=== PATIENT | female | born 1980 | race Caucasian/White ===

== ENCOUNTER 2017-11-01 10:18 | Observation (INO) ==
[2017-11-01 10:56] LABS: Basophils % 0.1 %; Eosinophils # 0.1 K/mcL (0.0-0.6); Eosinophils % 1.1 %; Hematocrit 35.6 % (35.3-44.9); Hemoglobin 12.1 g/dL (11.5-15.4); Immature Granulocytes % 0.9 % (0-4); Lymphocytes # 1.5 K/mcL (0.6-4.6); Lymphocytes % 17.2 %; Mean Corpuscular Hemoglobin 30.5 pg (28.0-33.3); Mean Corpuscular Volume 89.7 fL (83.0-100.0); Mean Platelet Volume 11.4 fL (9.4-12.4); Monocytes # 0.8 K/mcL (0.0-1.3); Monocytes % 9.3 %; Neutrophils # 6.3 K/mcL (1.6-8.9); Platelet Count 160 K/mcL (140-400); Red Blood Count 3.97 M/mcL (3.82-4.97); Red Cell Distribution Width 15.4 % (11.5-14.5); Segmented Neutrophils % 71.4 %
[2017-11-01 11:04] LABS: Amphetamine Screen,Urine Negative ng/mL (Cutoff=1000); Barbiturate Screen,Urine Negative ng/mL (Cutoff=200); Benzodiazepines Screen,Urine Negative ng/mL (Cutoff=200); Cannabinoid Screen,Urine Negative ng/mL (Cutoff = 50); Cocaine Screen,Urine Negative ng/mL (Cutoff= 300); Opiate Screen,Urine Negative ng/mL (Cutoff=300); Phencyclidine Screen,Urine Negative ng/mL (Cutoff=25); Protein/Creatinine Ratio,Urine 0.24 mg/mg (0.00-0.20)
[2017-11-01 11:20] LABS: Alanine Aminotransferase 10 Units/L (7-52); Aspartate Amino Transferase 13 Units/L (13-39); BUN/Creatinine Ratio 11 (6-26); Blood Urea Nitrogen 5 mg/dL (6-20); Lactate Dehydrogenase 124 Units/L (140-271); Uric Acid 5.2 mg/dL (2.3-7.6); eGFR For Non-African Americans > 60 (> 60)
--- NOTE | 2017-11-01 11:20 | OB/GYN Progress Note ---
Date of Encounter: 11/01/17 Time of Encounter: 11:18 - Assessment and Plan (1) 35 weeks gestation of Current Visit: Yes Status: Acute PIH Labs normal BP normal Will treat headache with Imitrex Stable to discharge home Pre-Term Labor and PIH Precautions given (2) Headache Current Visit: Yes Status: Acute Qualifiers: Headache type: tension-type Headache chronicity pattern: acute headache Intractability: intractable Qualified Code(s): G44.201 - Tension-type headache , unspecified, intractable Subjective - Subjective Principal diagnosis: Headache Interval history: This is a 37 y/o F at 35 weeks gestation who presents with headaches, blurry vision, lightheadedness for the past 3 days. States headache comes and goes and spreads across the top of her head similar to tension headaches she has had in the past. Currently managed with Tylenol with only minimal relief. Has hx of pre-eclampsia with previous in 2000. Endorses +FM. Denies vaginal bleeding, loss of fluid. Denies ear pain, nasal congestion, sore throat , nausea, vomiting, diarrhea, dysuria. Antepartum ROS: new complaints, movement normal, no loss of fluid, no vaginal bleeding, no contractions Objective - Vital Signs Vital Signs: Intake and Output 10/31/17 11/01/17 11/01/17 23:59 07:59 15:59 Other: Weight 114.305 kg Patient Weight 11/01/17 23:59 Weight 114.305 kg - Exam FHR: auscultation normal, category 1 FHR comments: Baseline 135; Reactive NST Auscultation: bilateral: normal Abdomen: Present: normal appearance, soft, gravid - Labs Labs: Abnormal lab results RDW 15.4 % (11.5-14.5) H 11/01/17 10:39 Protein/Creatinin Ratio 0.24 mg/mg (0.00-0.20) H 11/01/17 10:39
[2017-11-01] MEDS ORDERED: SUMAtriptan succinate 50 MG TABLET PO ONE (11:40)
== END 2017-11-01 12:05 | disposition home or self-care (01) ==
LOC: 1NENULAB
PROVIDERS: ADMIT Obstetrics & Gynecology; ATTEND Obstetrics & Gynecology

== ENCOUNTER 2017-11-04 10:11 | Observation (INO) ==
[2017-11-04 11:16] LABS: Basophils % 0.2 %; Eosinophils # 0.1 K/mcL (0.0-0.6); Hematocrit 33.5 % (35.3-44.9); Hemoglobin 10.9 g/dL (11.5-15.4); Immature Granulocytes % 1.2 % (0-4); Lymphocytes # 1.6 K/mcL (0.6-4.6); Lymphocytes % 18.5 %; Mean Corpuscular HGB Conc 32.5 g/dL (31.6-35.5); Mean Corpuscular Hemoglobin 29.4 pg (28.0-33.3); Mean Corpuscular Volume 90.3 fL (83.0-100.0); Mean Platelet Volume 11.6 fL (9.4-12.4); Monocytes # 0.7 K/mcL (0.0-1.3); Monocytes % 8.3 %; Neutrophils # 6.2 K/mcL (1.6-8.9); Platelet Count 153 K/mcL (140-400); Red Blood Count 3.71 M/mcL (3.82-4.97); Red Cell Distribution Width 15.7 % (11.5-14.5); Segmented Neutrophils % 70.8 %
[2017-11-04 11:40] LABS: Alanine Aminotransferase 10 Units/L (7-52); Aspartate Amino Transferase 13 Units/L (13-39); BUN/Creatinine Ratio 11 (6-26); Blood Urea Nitrogen 5 mg/dL (6-20); Lactate Dehydrogenase 119 Units/L (140-271); Protein/Creatinine Ratio,Urine 0.24 mg/mg (0.00-0.20); Uric Acid 5.7 mg/dL (2.3-7.6); eGFR For Non-African Americans > 60 (> 60)
[2017-11-04 11:41] LABS: Amphetamine Screen,Urine Negative ng/mL (Cutoff=1000); Barbiturate Screen,Urine Negative ng/mL (Cutoff=200); Benzodiazepines Screen,Urine Negative ng/mL (Cutoff=200); Cannabinoid Screen,Urine Negative ng/mL (Cutoff = 50); Cocaine Screen,Urine Negative ng/mL (Cutoff= 300); Opiate Screen,Urine Negative ng/mL (Cutoff=300); Phencyclidine Screen,Urine Negative ng/mL (Cutoff=25)
--- NOTE | 2017-11-04 12:00 | OB/GYN Progress Note ---
Date of Encounter: 11/04/17 Time of Encounter: 11:58 - Assessment and Plan (1) 35 weeks gestation of Current Visit: Yes Status: Acute (2) Headache Current Visit: Yes Status: Acute Labs and blood pressures normal. Patient was discharged after evaluation by RN. Qualifiers: Headache type: unspecified Headache chronicity pattern: chronic headache Intractability: intractable Qualified Code(s): R51 - Headache Objective - Vital Signs Vital Signs: Intake and Output 11/03/17 11/04/17 11/04/17 23:59 07:59 15:59 Other: Weight 114.7 kg Patient Weight 11/04/17 23:59 Weight 114.7 kg - Labs Labs: Abnormal lab results RBC 3.71 M/mcL (3.82-4.97) L 11/04/17 10:04 Hgb 10.9 g/dL (11.5-15.4) L 11/04/17 10:04 Hct 33.5 % (35.3-44.9) L 11/04/17 10:04 RDW 15.7 % (11.5-14.5) H 11/04/17 10:04 BUN 5 mg/dL (6-20) L 11/04/17 10:04 Creatinine 0.46 mg/dL (0.60-1.20) L 11/04/17 10:04 Lactate Dehydrogenase 119 Units/L (140-271) L 11/04/17 10:04 Protein/Creatinin Ratio 0.24 mg/mg (0.00-0.20) H 11/04/17 10:04 Urine Total Protein 17 mg/dL (1-14) H 11/04/17 10:04
== END 2017-11-04 12:13 | disposition home or self-care (01) ==
LOC: 1NENULAB
PROVIDERS: ADMIT Advanced Practice Midwife; ATTEND Advanced Practice Midwife

== ENCOUNTER → 2017-11-22 22:40 | Observation (INO) ==
[2017-11-22 21:09] LABS: Bilirubin,Urine Negative (Negative); Blood,Urine Negative (Negative); Clarity,Urine Cloudy (Clear); Color,Urine Yellow (Yellow); Glucose,Urine (UA) Normal (Normal); Ketones,Urine Negative (Negative); Leukocyte Esterase,Urine Negative (Negative); Nitrite,Urine Negative (Negative); Protein,Urine Negative (Neg-Trace); Specific Gravity,Urine 1.007 (1.010-1.025); Urobilinogen,Urine Normal (Normal)
[2017-11-22 21:11] LABS: Bacteria,Urine None Seen per hpf (None-Few); Hyaline Casts,Urine None Seen per lpf (None-Few); Squamous Epithelial Cell,Urine Many per lpf (None-Few); WBC,Urine 0-3 per hpf (0-3)
[2017-11-22 21:16] LABS: Amphetamine Screen,Urine Negative ng/mL (Cutoff=1000); Barbiturate Screen,Urine Negative ng/mL (Cutoff=200); Benzodiazepines Screen,Urine Negative ng/mL (Cutoff=200); Cannabinoid Screen,Urine Negative ng/mL (Cutoff = 50); Cocaine Screen,Urine Negative ng/mL (Cutoff= 300); Opiate Screen,Urine Negative ng/mL (Cutoff=300); Phencyclidine Screen,Urine Negative ng/mL (Cutoff=25)
--- NOTE | 2017-11-22 22:33 | Discharge Summary ---
Date of Encounter: 11/22/17 Time of Encounter: 22:32 - Discharge Diagnosis (1) 38 weeks gestation of Priority: Primary Status: Acute Comments: Follow-up with Dr. Bautista on Thursday as scheduled Labor parameters explained Discharge home (2) Abdominal cramping affecting Priority: Secondary Status: Acute Comments: Reports cramping has now stopped again. Encouraged to increase hydration. Biopsies heating pad. May also use heating pad. - Discharge Medications Home Medications: Vitamins PO DAILY 06/22/17 [History] Aspirin 81 mg PO DAILY 09/25/17 [History] Allergies/Adverse Reactions: 3 Allergy/AdvReac Type Severity Reaction Status Date / Time No Known Allergies Allergy Verified 09/25/17 21:06 Data Procedures and tests throughout hospitalization: Laboratory Tests 11/22/17 11/22/17 20:47 20:47 Urine Color Yellow Urine Clarity Cloudy A Urine pH 7.0 Ur Specific [place] 1.007 L Urine Protein Negative Urine Glucose (UA) Normal Urine Ketones Negative Urine Blood Negative Urine Nitrite Negative Urine Bilirubin Negative Urine Urobilinogen Normal Ur Leukocyte Esterase Negative Urine Microscopic RBC 5-15 H Urine Microscopic WBC 0-3 Ur Squamous Epith Cells Many H Urine Bacteria None Seen Hyaline Casts None Seen Ur Culture Indicated? NO Urine Opiates Screen Negative Ur Barbiturates Screen Negative Ur Phencyclidine Scrn Negative Ur Amphetamines Screen Negative U Benzodiazepines Scrn Negative Urine Cocaine Screen Negative U Marijuana (THC) Screen Negative Ur Drug Screen Interp See Below Labs on day of discharge: Labs from last 24 hours 11/22/17 11/22/17 20:47 20:47 Urine Color Yellow Urine Clarity Cloudy A Urine pH 7.0 Ur Specific [place] 1.007 L Urine Protein Negative Urine Glucose (UA) Normal Urine Ketones Negative Urine Blood Negative Urine Nitrite Negative Urine Bilirubin Negative Urine Urobilinogen Normal Ur Leukocyte Esterase Negative Urine Microscopic RBC 5-15 H Urine Microscopic WBC 0-3 Ur Squamous Epith Cells Many H Urine Bacteria None Seen Hyaline Casts None Seen Ur Culture Indicated? NO Urine Opiates Screen Negative Ur Barbiturates Screen Negative Ur Phencyclidine Scrn Negative Ur Amphetamines Screen Negative U Benzodiazepines Scrn Negative Urine Cocaine Screen Negative U Marijuana (THC) Screen Negative Ur Drug Screen Interp See Below Date of admission: 11/22/17 19:58 Discharging clinician: Justa Oakes Anticipated date of discharge: 11/22/17 - Patient Status Disposition: Home, Self-Care Condition: Good Functional capacity at discharge: independent ambulation Overall status at discharge: patient is progressing back to baseline - Discharge Instructions Follow Up With: Lucia Bautista MD [Partnered Physician] - - Diet and Activity Activity: increase activity as tolerated Diet: regular diet 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 Ambriz is a 37-year-old 012 at 38 weeks 0 days gestation who presents with complaints of contractions off and on all day on Thursday. She reports they stopped on Thursday. She reports the resume today in the morning. She states they have been every 15 minutes throughout the day and now feels that they are closer together but cannot quantify time. She endorses good movement and denies leakage of fluid and vaginal bleeding. She was here for 2 hours with no cervical change. SVE on arrival is 1-/ballotable. Labor parameters were discussed with patient and partner and they verbalized understanding of when to return in anticipation of laboring. She states she has an appointment with Dr. Bautista on Thursday and plans to keep it and follow-up then. Time Attestation: Total time spent providing and/or coordinating discharge services: Time Spent: Less than 30 minutes Exam - Constitutional General appearance IM: A&O X 3, morbidly obese, pleasant, no acute distress, answers questions appropriately - Respiratory Respiratory exam: Present: CTAB - Cardiovascular Cardiovascular exam IM: Present: RRR, +S1, +S2 - GI/Abdominal GI/Abdominal exam IM: normal bowel sounds, no peritoneal signs - Rectal Rectal exam: deferred - Uterine Tone: Firm - Extremities Exam Extremities exam IM: Present: normal capillary refill, normal inspection, radial pulses palpable and symmetrical - Neurological Exam Neurological exam: alert, CN II-XII intact, normal gait, oriented X3, reflexes normal, no focal deficits, strengths equal and symetr throughout - VTE Reasons for not Prescribing Prophylaxis: Treatment not Indicated - Low risk for VTE
== END | disposition home or self-care (01) ==
LOC: 1NENULAB
PROVIDERS: ADMIT Obstetrics & Gynecology; ATTEND Obstetrics & Gynecology

== ENCOUNTER 2017-11-30 05:42 | Inpatient (IN) ==
[2017-11-30] MEDS ORDERED: Metoclopramide 10 MG/2 ML VIAL IVP PRN (05:43)
[2017-11-30] MEDS ORDERED: Famotidine 20 MG/2 ML VIAL IVP PRN (05:43)
[2017-11-30] MEDS ORDERED: Naloxone 0.4 MG/ML INJ IVP PRN (05:43)
[2017-11-30] MEDS ORDERED: Ringers Solution, Lactated 1,000 ML IVC SCH (05:45)
[2017-11-30 06:40] LABS: Basophils % 0.2 %; Eosinophils # 0.2 K/mcL (0.0-0.6); Eosinophils % 1.7 %; Hemoglobin 11.1 g/dL (11.5-15.4); Immature Granulocytes % 0.8 % (0-4); Lymphocytes # 1.9 K/mcL (0.6-4.6); Lymphocytes % 19.5 %; Mean Corpuscular HGB Conc 32.6 g/dL (31.6-35.5); Mean Corpuscular Hemoglobin 29.7 pg (28.0-33.3); Mean Corpuscular Volume 90.9 fL (83.0-100.0); Mean Platelet Volume 11.7 fL (9.4-12.4); Monocytes # 0.9 K/mcL (0.0-1.3); Neutrophils # 6.6 K/mcL (1.6-8.9); Platelet Count 143 K/mcL (140-400); Red Blood Count 3.74 M/mcL (3.82-4.97); Red Cell Distribution Width 16.1 % (11.5-14.5); Segmented Neutrophils % 68.8 %
[2017-11-30 07:13] LABS: Amphetamine Screen,Urine Negative ng/mL (Cutoff=1000); Barbiturate Screen,Urine Negative ng/mL (Cutoff=200); Benzodiazepines Screen,Urine Negative ng/mL (Cutoff=200); Cannabinoid Screen,Urine Negative ng/mL (Cutoff = 50); Cocaine Screen,Urine Negative ng/mL (Cutoff= 300); Opiate Screen,Urine Negative ng/mL (Cutoff=300); Phencyclidine Screen,Urine Negative ng/mL (Cutoff=25)
[2017-11-30] MEDS ORDERED: MetroNIDAZOLE 500 MG/100 ML 500 MG/100 ML BAG IVPB ONE (07:34)
[2017-11-30] MEDS ORDERED: WATER IVPB ONE (07:35)
[2017-11-30] MEDS ORDERED: D5 IVPB ONE (07:35)
[2017-11-30] MEDS ORDERED: CEFOXITIN IVPB ONE (07:35)
--- NOTE | 2017-11-30 07:38 | Anesthesia Evaluation PreOp ---
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 Any Significant HX Other Medical History: Other ([place]) Anesthesia History: No Prior Anesthetic Complications : Yes (39 weeks, large for gestational age) Alcohol Use: none Drug use: none Medications and Allergies Vitamins 1 tab PO DAILY 06/22/17 [History] Aspirin 81 mg PO DAILY 09/25/17 [History] 3 Allergy/AdvReac Type Severity Reaction Status Date / Time No Known Allergies Allergy Verified 09/25/17 21:06 - Meds/Allergy Pre-op Review Medications Reviewed: Yes Allergies Reviewed: Yes Beta Blockers on Current Med List: No Anesthesia Results - Labs 11/30/17 06:18 Anesthesia Exam O2 Sat Height 1.68 m Weight 116.6 kg Vital Signs Temp Pulse Resp BP 98.4 F 80 15 124/76 11/30/17 05:54 11/30/17 05:54 11/30/17 05:54 11/30/17 05:54 Height: 5'6 Weight: 257 lbs NPO (# of Hours): MN Pain Scale: 0 - HEENT Pupil (Motor): Pupils equal, EOMI Mallampati: II Teeth: Normal Oral Opening: Greater than 3 - NAPPING MACHINE OPERATOR LOC: Oriented NAPPING MACHINE OPERATOR Motor: Normal RUE, Normal LUE, Normal RLE, Normal LLE, Normal Face NAPPING MACHINE OPERATOR Sensory: Normal: RUE, LUE, RLE, LLE, Face - Cardiac Rhythm: Regular Murmur: None JVD: No Carotid Bruit: No - Pulmonary Breath Sounds: bilateral Clear Respiratory Effort: Symmetrical Anesthesia Assess/Plan ASA Score: 3 ([place] ) Modified Bunn Scale for Level of Consciousness: Cooperative, oriented, and tranquil Anesthetic Plan: Regional Monitoring Plan: Standard Monitors Recovery Plan: PACU (Discussed SAB possible GA, agrees to proceed)
--- NOTE | 2017-11-30 07:52 | OB/GYN History & Physical ---
Date of Encounter: 11/30/17 Time of Encounter: 07:49 History of Present Illness Chief complaint: Scheduled primary section HPI: Ms. Ambriz is a 37 year old female 012 here for a scheduled primary section at 39 weeks and 1 day with an EDC of 12/06/17 by an 11 week ultrasound. She is requesting an ultrasound due to an estimated weight on 11/18 of 4221 g. This was with maternal- medicine. Risks and benefits of shoulder dystocia were reviewed with Dr. Jarrell. Informed consent has been obtained. The patient denies any cramping, bleeding or loss of fluid since her last visit. She still has lower extremity edema. She wanted a tubal ligation but did not sign tubal papers until 11/24/17 which limits her ability to get this done today due to insurance issues. Her labs include a blood type of A+, rubella immune, varicella immune and GBS negative. She has a history of preeclampsia and has been on a baby aspirin. Her has also been complicated by obesity. She denies any blurred vision, headaches or epigastric pain Past Med Surg Social Fam HX - Past Medical History Attestation: Yes The following information was validated with the patient. Source: patient, old records reviewed Medical history: non-contributory Psychiatric history: no psych history - Past Surgical History Surgical History: other (Hysteroscopy, laparoscopy, D&C and tonsillectomy) Additional surgical history: right leg surgery - Social History Smoking Status: Former smoker Smokeless Tobacco Status: No Alcohol use: none Drug use: none Current living situation: Home - Independent Activity Level: Independent ambulation - Family History Father Living Status: Still Living Hx Family Cardiac Disorders: No Hx Family Respiratory Disorders: Yes (COPD) Hx Family Cancer: No Hx Family GI Disorders: No Hx Family Endocrine Disorder: No Hx Family Neuromuscular Disorders: No Hx Family Neurologic Disorders: No Hx Family HEENT Disorders: No Hx Family Autoimmune Disorders: No Mother Living Status: Still Living Hx Family Cardiac Disorders: No Hx Family Respiratory Disorders: No Hx Family Cancer: No Hx Family GI Disorders: No Hx Family Genitourinary Disorders: No Hx Family Endocrine Disorder: No Hx Family Musculoskeletal Disorders: No Hx Family Neuromuscular Disorders: No Hx Family Neurologic Disorders: No Hx Family HEENT Disorders: No Hx Family Autoimmune Disorders: No Hx Family Reproductive Disorders: No Hx Family Psychosocial Disorders: No Hx Family Medical Disorders: No Obstetrical History - Pregnancies : 4 Term: 2 : 0 Ab's: 1 Livin - History/Complications History/Complications: Preeclampsia with first in 1997 Medications and Allergies Vitamins 1 tab PO DAILY 06/22/17 [History] Aspirin 81 mg PO DAILY 09/25/17 [History] 3 Allergy/AdvReac Type Severity Reaction Status Date / Time No Known Allergies Allergy Verified 09/25/17 21:06 Review of System OB All systems PM: reviewed and no additional remarkable complaints except as stated - Constitutional Constitutional ROS IM: fatigue, weight gain - Integumentary Integumentary: swelling (Bilateral lower extremities) Exam - Vital Signs Vital signs: Initial Vital Signs Temp Pulse Resp BP 98.4 F 80 15 124/76 11/30/17 05:54 11/30/17 05:54 11/30/17 05:54 11/30/17 05:54 - Constitutional Constitutional: well developed, well nourished, no acute distress, morbidly obese - HEENT HEENT: Normocephaly, Mucus Membranes Moist - Neck Neck exam: normal inspection, supple - Lungs Respiratory exam: CTAB - Cardiovascular Cardiovascular exam: RRR - Abdomen Abdomen: Present: bowel sounds normal, gravid, non tender - Extremities Extremities exam: pedal edema, warm Deep Tendon Reflex Grade: 3+ Normal But Brisk Results Result Diagrams: 11/30/17 06:18 Abnormal lab results RBC 3.74 M/mcL (3.82-4.97) L 11/30/17 06:18 Hgb 11.1 g/dL (11.5-15.4) L 11/30/17 06:18 Hct 34.0 % (35.3-44.9) L 11/30/17 06:18 RDW 16.1 % (11.5-14.5) H 11/30/17 06:18 All other labs normal.
[2017-11-30] MEDS ORDERED: Acetaminophen IV 1,000 MG/100 ML INFUS..BTL IVPB ONE (07:57)
[2017-11-30] MEDS ORDERED: Ondansetron 4 MG/2 ML VIAL IVP ONE (07:57)
[2017-11-30] MEDS ORDERED: *HR* OxyCODONE Immed Rel 5 MG TABLET PO PRN (07:57)
[2017-11-30] MEDS ORDERED: *HR* FentaNYL (PF) 100 MCG/2 ML VIAL IVP PRN (07:57)
--- NOTE | 2017-11-30 08:34 | Anesthesia Procedures ---
Date of Encounter: 11/30/17 Time of Encounter: 08:32 Procedures: Anesthesia - Epidural/Spinal Patient ID/Chart reviewed: Yes Patient examined: Yes OB Eval: Gestational age: 39 OB Eval: : 4 OB Eval: Hx Para: 2 OB Eval: Contractions: Non-stressed pattern Consent Obtained: Yes Supplemental Oxygen: Nasal Cannula Supplemental Oxygen Rate (L/min): 3 Site Prep: Aseptic Technique, 0.5% Chlorhexidine/Alcohol Patient position: upright Local Anesthetic: Lidocaine 1% (3) Amount of Local Anesthetic used: 3 Interspace Used: L2-L3 Loss of Resistance (AMNA): No Blood: No CSF: Yes Paresthesia: No Spinal Needle Gauge: 25 Spinal Dose: marcaine 12 mg duramorph .25 mg fentanyl 10 mcg Vitals + FHT's: 126/78 70 16 fht 133
--- NOTE | 2017-11-30 09:38 | OB/GYN Procedure Note ---
Section - Date of procedure: 11/30/17 Preop diagnosis: other (Desires primary section for suspected macrosomia) Post-op diagnosis: same Procedure: section, primary low transverse Surgeon: Lucia Dorantes Blood Loss: 700 Was there an surgical supply assistant present: Yes Protective Services Social Worker: Dev Villafana Anesthesiologist: Rolando Butler Case Preparer And Liner: Genaro Valdivia Anesthesia Type: Spinal section complications: none Disposition: L&D Recovery Room Specimens: Placenta, Cord segment - (s) Infant A Infant Delivery Date: 11/30/17 Infant Delivery Time: 08:34 Presentation: vertex Position: RADHA Route of delivery: other () Gender: Male Viability: Viable Pounds: 9 Ounces: 12 Gram Weight: 4.43 kg at 1 minute: 8 at 5 minutes: 9 Shoulder Dystocia: not encountered Placenta: spontaneous Cord: 3 umbilical vessels - Narrative Narrative: The patient was brought to the operating room, sign in completed, given spinal anesthesia then prepped and draped in the usual sterile fashion. A timeout was completed. A Pfannenstiel skin incision was then made and sharply dissected down to the fascia. The fascia was then incised in the midline and extended bluntly and sharply bilaterally. 2 straight Maryjo clamps are placed on the inferior fascial edge and the fascia was bluntly and sharply dissected from rectus muscles, this was repeated superiorly. The rectus muscles were bluntly and sharply bissected. Peritoneum was bluntly entered and extended bluntly superiorly and inferiorly. A bladder blade was placed to protect the bladder. The Vesicouterine peritoneum was incised with Metzenbaum scissors and extended laterally then the bladder flap was reflected inferiorly and the bladder blade was replaced to protect the bladder. A low transverse incision was then made in the lower uterine segment down to the amnion. There was brisk bleeding which was then later identified as the inferior edge of the placenta. The incision was then bluntly extended bilaterally. The amnion was then bluntly entered with Allis clamp, clear fluid was seen, and the was delivered in vertex presentation. The was vigorous and suctioned on the operating field. After delayed cord clamping, the infant was handed to the nursery care team. A cord segment was obtained. IV Pitocin was started. The placenta was delivered spontaneous and intact. The uterine cavity was digitally inspected and noted to be clear and then was wiped clean with a moist lap sponge. Tubes and ovaries were inspected and found to be grossly normal. Ring clamps were placed on the edge of the uterine incision and the uterine incision was closed using 0 Vicryl suture in a running locking fashion. A second imbricating layer completed the uterine closure. Good hemostasis was achieved. The pelvic cavity was copiously irrigated with sterile water and good hemostasis was confirmed. Peritoneal edges and rectus muscles were inspected and good hemostasis was achieved. The fascia was then closed using an 0 PDS loop in a running nonlocking fashion. Subcutaneous tissue was irrigated with sterile water good hemostasis was achieved. This layer was closed with an O- Stratafix. The skin was then closed with 4-0 Monocryl in a subcuticular fashion. Prineo dressing placed. The Iglesias was noted to be draining clear yellow urine at the end of the procedure. All sponge and instrument counts were correct at the end of the procedure.
[2017-11-30] MEDS ORDERED: Oxytocin 20 units/ LR 1000 mL 20 UNIT/1,000 ML BAG IVC ONE ×2 (09:46→11:25)
--- NOTE | 2017-11-30 12:00 | Anesthesia Evaluation Post Op ---
Date of Encounter: 11/30/17 Time of Encounter: 11:58 - Vital Signs Vital Signs: Vital Signs/O2 Sat, Most Current Temp Pulse Resp BP Pulse Ox 98 F 68 15 106/69 95 11/30/17 11:55 11/30/17 11:55 11/30/17 11:55 11/30/17 11:55 11/30/17 11:55 - Lungs Lungs: Clear Ascult./Percussion - Airway Airway: Non-obstructed - Cardiovascular Regular Rate - Mental Status Mental Status: Alert & Oriented, Answers Appropriately - Pain Pain Scale: 3 Pain Scale used: Numeric (1 - 10) - Nausea Vomiting Nausea Vomiting: Not Present - Hydration Hydration: Ice chips, Iglesias catheter - Discharge PostOp Status: Transfer Patient to floor (VSS, fully awake, minimal pain, no anesthetic complications)
[2017-11-30] MEDS ORDERED: Simethicone 80 MG TAB.CHEW PO PRN (12:15)
[2017-11-30] MEDS ORDERED: Oxytocin 20 units/ LR 1000 mL 20 UNIT/1,000 ML BAG IVC SCH (12:15)
[2017-11-30] MEDS ORDERED: Ondansetron 4 MG/2 ML VIAL IVP PRN (12:15)
[2017-11-30] MEDS ORDERED: Sennosides 8.6 MG TABLET PO PRN (12:15)
[2017-11-30] MEDS: *HR* OxyCODONE/APAP 5/325 TABLET PO PRN (14:14)
[2017-11-30] MEDS: Ibuprofen 600 MG TABLET PO SCH (20:03)
[2017-12-01] MEDS: Ibuprofen 600 MG TABLET PO SCH ×4 (02:42→20:31)
[2017-12-01 04:14] LABS: Basophils % 0.2 %; Eosinophils # 0.2 K/mcL (0.0-0.6); Eosinophils % 1.6 %; Hematocrit 30.1 % (35.3-44.9); Hemoglobin 9.9 g/dL (11.5-15.4); Immature Granulocytes % 0.8 % (0-4); Lymphocytes # 1.8 K/mcL (0.6-4.6); Lymphocytes % 16.5 %; Mean Corpuscular HGB Conc 32.9 g/dL (31.6-35.5); Mean Corpuscular Hemoglobin 30.3 pg (28.0-33.3); Mean Platelet Volume 11.4 fL (9.4-12.4); Monocytes % 9.4 %; Neutrophils # 7.6 K/mcL (1.6-8.9); Platelet Count 129 K/mcL (140-400); Red Blood Count 3.27 M/mcL (3.82-4.97); Red Cell Distribution Width 16.4 % (11.5-14.5); Segmented Neutrophils % 71.5 %
[2017-12-01] MEDS: Prenatal Vit/FA 1 EACH TABLET PO SCH (07:31)
[2017-12-01] MEDS: *HR* OxyCODONE/APAP 5/325 TABLET PO PRN ×3 (07:32→18:46)
--- NOTE | 2017-12-01 09:27 | OB/GYN Progress Note ---
Date of Encounter: 12/01/17 Time of Encounter: 09:25 - Assessment and Plan (1) S/P section Current Visit: Yes Status: Acute Pt meeting post-op day 1 milestones. Anticipate discharge home POD2-3. Subjective - Subjective Interval history: Pt reports some cramping pain this am. No other complaints. Patient reports: appetite normal, voiding normally, pain well controlled, ambulating normally [place]: doing well Objective - Vital Signs Latest vital signs: Vital Signs Temp Pulse Resp BP Pulse Ox 12/01/17 08:03 97.8 F 77 14 121/74 96 12/01/17 04:10 98.4 F 84 16 112/72 96 12/01/17 00:35 98.7 F 85 16 117/70 96 11/30/17 20:10 98.6 F 83 14 110/72 96 11/30/17 15:05 98.2 F 72 16 102/64 96 11/30/17 14:00 97.9 F 70 16 111/69 95 11/30/17 13:00 97.6 F 86 14 112/65 96 11/30/17 11:55 98 F 68 15 106/69 95 Intake and Output 11/30/17 12/01/17 12/01/17 23:59 07:59 15:59 Intake Total 1880 / 1880 400 / 400 1020 / 1020 Output Total 2200 / 2200 3400 / 3400 400 / 400 Balance -320 / -320 -3000 / -3000 620 / 620 Intake: Oral 1880 / 1880 400 / 400 1020 / 1020 Output: Urine 400 / 400 400 / 400 Catheter 2200 / 2200 3000 / 3000 Other: Meal Breakfast Percent of Meal Consumed 100% Weight 112.491 kg Patient Weight 12/01/17 23:59 Weight 112.491 kg - Exam Lungs: bilateral: normal Chest: Normal S1, Normal S2 Extremities: Present: edema (1+ bilaterally) Abdomen: Present: soft, gravid Incision: Present: intact Uterus: Present: firm - Labs Labs: Laboratory Results - last 24 hr 12/01/17 04:01 WBC 10.6 RBC 3.27 L Hgb 9.9 L Hct 30.1 L MCV 92.0 MCH 30.3 MCHC 32.9 RDW 16.4 H Plt Count 129 L MPV 11.4 Immature Gran % 0.8 Seg Neutrophils % 71.5 Lymphocytes % 16.5 Monocytes % 9.4 Eosinophils % 1.6 Basophils % 0.2 Neutrophils # 7.6 Lymphocytes # 1.8 Monocytes # 1.0 Eosinophils # 0.2 Basophils # 0.0
[2017-12-02] MEDS: *HR* OxyCODONE/APAP 5/325 TABLET PO PRN ×5 (00:20→21:08)
[2017-12-02] MEDS ORDERED: Lanolin 28 GM TUBE TP PRN (00:23)
[2017-12-02] MEDS: Ibuprofen 600 MG TABLET PO SCH ×3 (06:05→18:14)
[2017-12-02] MEDS: Prenatal Vit/FA 1 EACH TABLET PO SCH (08:33)
--- NOTE | 2017-12-02 13:19 | OB/GYN Progress Note ---
Date of Encounter: 12/02/17 Time of Encounter: 13:17 - Assessment and Plan (1) S/P section Current Visit: Yes Status: Acute Stable postop day #2 Continue current management plan Anticipate discharge tomorrow with infant Subjective - Subjective Interval history: Patient states feels well, breast-feeding, pain was managed on by mouth pain medication, tolerating regular diet Patient reports: appetite normal, voiding normally, pain well controlled, ambulating normally [place]: doing well, nursing well Objective - Vital Signs Latest vital signs: Vital Signs Temp Pulse Resp BP Pulse Ox 12/02/17 07:25 98.1 F 69 14 118/71 97 12/01/17 20:42 98.5 F 86 18 133/77 96 Intake and Output 12/01/17 12/02/17 12/02/17 23:59 07:59 15:59 Intake Total 1000 / 1000 1900 / 1900 360 / 360 Output Total 900 / 900 2500 / 2500 Balance 100 / 100 1900 / 1900 -2140 / -2140 Intake: Oral 1000 / 1000 1900 / 1900 360 / 360 Output: Urine 900 / 900 2500 / 2500 Other: Meal Breakfast Breakfast Percent of Meal Consumed 100% 100% - Exam Lungs: bilateral: normal Chest: Normal S1, Normal S2 Extremities: Present: normal Abdomen: Present: soft Incision: Present: intact (dermabond dressing) Uterus: Present: firm (U)
[2017-12-03] MEDS: Ibuprofen 600 MG TABLET PO SCH ×2 (00:42→08:06)
[2017-12-03] MEDS: *HR* OxyCODONE/APAP 5/325 TABLET PO PRN ×2 (04:03→08:06)
[2017-12-03] MEDS: Prenatal Vit/FA 1 EACH TABLET PO SCH (08:04)
[2017-12-03 08:41] VITALS: BP 130/73
--- NOTE | 2017-12-03 09:13 | Discharge Summary ---
Date of Encounter: 12/03/17 Time of Encounter: 09:12 - Discharge Diagnosis (1) S/P section Priority: Primary Status: Acute Comments: S/P delivery day 3 Pain is well controlled Lochia is light and without clots VSS Tolerating regular diet; passing flatus Urinating without difficulty Breast feeding Discharge home today - Discharge Medications Prescriptions: Ibuprofen [Motrin] 600 mg PO Q6HR #30 tablet Breast Pump [BREAST PUMP] 1 each .ROUTE AD #1 each Docusate [Colace] 100 mg PO BID #30 capsule Ferrous Sulfate 325 mg PO DAILY #90 tablet OxyCODONE/APAP 5/325 [Percocet 5/325 MG] 1 each PO Q6H PRN 7 Days #28 tablet PRN Reason: Moderate pain 4-6 Home Medications: Vitamins 1 tab PO DAILY 06/22/17 [History] Breast Pump [BREAST PUMP] 1 each .ROUTE AD #1 each 12/03/17 [Rx] Docusate [Colace] 100 mg PO BID #30 capsule 12/03/17 [Rx] Ferrous Sulfate 325 mg PO DAILY #90 tablet 12/03/17 [Rx] Ibuprofen [Motrin] 600 mg PO Q6HR #30 tablet 12/03/17 [Rx] Lanolin 1 appl TP Q4HR PRN tube 12/03/17 [Rx] OxyCODONE/APAP 5/325 [Percocet 5/325 MG] 1 each PO Q6H PRN 7 Days #28 tablet [Rx] Simethicone [Gas-X] 80 mg PO TID PRN tab.chew 12/03/17 [Rx] Allergies/Adverse Reactions: 3 Allergy/AdvReac Type Severity Reaction Status Date / Time No Known Allergies Allergy Verified 09/25/17 21:06 Data Procedures and tests throughout hospitalization: Laboratory Tests 11/30/17 11/30/17 12/01/17 06:18 06:18 04:01 WBC 9.6 10.6 RBC 3.74 L 3.27 L Hgb 11.1 L 9.9 L Hct 34.0 L 30.1 L MCV 90.9 92.0 MCH 29.7 30.3 MCHC 32.6 32.9 RDW 16.1 H 16.4 H Plt Count 143 129 L MPV 11.7 11.4 Immature Gran % 0.8 0.8 Seg Neutrophils % 68.8 71.5 Lymphocytes % 19.5 16.5 Monocytes % 9.0 9.4 Eosinophils % 1.7 1.6 Basophils % 0.2 0.2 Neutrophils # 6.6 7.6 Lymphocytes # 1.9 1.8 Monocytes # 0.9 1.0 Eosinophils # 0.2 0.2 Basophils # 0.0 0.0 Urine Opiates Screen Negative Ur Barbiturates Screen Negative Ur Phencyclidine Scrn Negative Ur Amphetamines Screen Negative U Benzodiazepines Scrn Negative Urine Cocaine Screen Negative U Marijuana (THC) Screen Negative Ur Drug Screen Interp See Below Date of admission: 11/30/17 05:42 Primary care physician: PCP NONE Discharging clinician: Justa Haile Anticipated date of discharge: 12/03/17 - Patient Status Disposition: Home, Self-Care Condition: Good Functional capacity at discharge: independent ambulation Overall status at discharge: patient is progressing back to baseline - Discharge Instructions Follow Up With: NONE,PCP [Primary Care Provider] - Lucia Bautista MD [Partnered Physician] - - Diet and Activity Activity: increase activity as tolerated Diet: regular diet Hospital Course Reason for admission: section, IUP at term Delivery: section Episiotomy: none Laceration: none Other procedures: none complications: none Discharge diagnosis: IUP at term delivered [place] baby: male Time Attestation: Total time spent providing and/or coordinating discharge services: Time Spent: Less than 30 minutes - VTE Documentation of Mechanical Device: Intermittent pneumatic compression device Exam - Constitutional Vitals: Temp Pulse Resp BP Pulse Ox 97.6 F 77 18 130/73 97 12/03/17 08:40 12/03/17 08:40 12/03/17 08:40 12/03/17 08:40 12/02/17 20:00 General appearance IM: cooperative, A&O X 3, pleasant - Respiratory Respiratory exam: Present: CTAB - Cardiovascular Cardiovascular exam IM: Present: RRR, +S1, +S2 - GI/Abdominal GI/Abdominal exam IM: normal bowel sounds, soft Incision: normal, dry, intact - Rectal Rectal exam: deferred - Uterine Tone: Firm Uterus Position: At Umbilicus - Extremities Exam Extremities exam IM: Present: normal capillary refill, normal inspection, radial pulses palpable and symmetrical - Neurological Exam Neurological exam: alert, oriented X3
== END 2017-12-03 11:28 | disposition home or self-care (01) | DRG 540 ==
LOC: 1NENULAB 05:42 → 1NENUOBS 09:55
PROVIDERS: ADMIT Obstetrics & Gynecology; ATTEND Obstetrics & Gynecology